=== PATIENT | female | born 1985 | race Caucasian/White ===

== ENCOUNTER 2016-08-11 04:50 | Emergency (ER) | payer OTHER ==
[2016-08-11 04:36] LABS: BASOPHIL 0.3 % (0-2); EOSINOPHIL 0 % (0-5); HCT 42.7 % (37.0-47.0); HGB 14.9 g/dl (12.5-16.0); LYMPHOCYTE 7.7 % (15-48); MCH 30.4 pg (25.0-31.0); MCHC 34.9 g/dL (32.0-36.0); MCV 87.1 fL (78.0-100.0); MONOCYTE 2.8 % (0-12); MPV 10.3 fL (6.0-9.5); NEUTROPHIL 89.2 % (41-80); PLT 333 K/uL (150-400); RDW 13.4 % (11.5-14.0); WBC 11.5 K/uL (4.0-10.5)
[2016-08-11 04:51] LABS: ACETAMINOPHEN (TYLENOL) 39.3 ug/mL (10.0-30.0); ALCOHOL (ETOH) MEDICAL NONE DETECTED; SALICYLATE 259 ug/mL (0-300)
[2016-08-11 04:52] LABS: ALBUMIN 5.1 g/dL (3.5-5.0); BILIRUBIN - TOTAL 0.2 mg/dL (0.1-1.0); CREATININE 0.6 mg/dL (0.5-1.0); POTASSIUM 3.8 mmol/L (3.5-5.1); TOTAL PROTEIN 8.1 g/dL (6.4-8.3)
[2016-08-11 06:26] LABS: AMPHETAMINES NEGATIVE (NEGATIVE); BARBITURATES NEGATIVE (NEGATIVE); BENZODIAZEPINES NEGATIVE (NEGATIVE); COCAINE NEGATIVE (NEGATIVE); MARIJUANA (THC) NEGATIVE (NEGATIVE); METHADONE NEGATIVE (NEGATIVE); TRICYCLIC ANTIDEPRESSANT NEGATIVE (NEGATIVE)
[2016-08-11 08:08] LABS: ACETAMINOPHEN (TYLENOL) 23.6 ug/mL (10.0-30.0)
== END 2016-08-11 12:48 ==
LOC: FER 04:50
PROVIDERS: Emergency Medicine Emergency Medical Services
DX: T39.1X2A Poisoning by 4-Aminophenol derivatives, intentional self-harm, initial encounter (principal); F32.9 Major depressive disorder, single episode, unspecified; E86.9 Volume depletion, unspecified; F41.9 Anxiety disorder, unspecified; F17.210 Nicotine dependence, cigarettes, uncomplicated; Z79.899 Other long term (current) drug therapy
CPT/HCPCS: 36415; 80053; 80305; 85025; 93005; G0480; J2060; J2405